=== PATIENT | female | born 1975 | race Two or more races ===

== ENCOUNTER 2018-11-09 05:36 | Day surgery (SDC) | payer OTHER ==
[2018-11-09] MEDS: CEFAZOLIN 2 GM/50 ML (PMX) 50 ML IVPB (06:00)
[2018-11-09] MEDS ORDERED: DESFLURANE 15 MIN (07:00)
[2018-11-09] MEDS ORDERED: BUPIVACAINE 0.5%/EPI (SDV) 10 ML INJ (07:23)
[2018-11-09] MEDS ORDERED: HYDROmorphONE 1 MG/5 ML IV SYRINGE IV ×3 (07:30)
[2018-11-09] MEDS ORDERED: FENTAnyl 50 MCG/ML VIAL IV ×3 (07:30)
[2018-11-09] MEDS ORDERED: DIPHENHYDRAMINE 50 MG INJ IV (07:30)
[2018-11-09] MEDS ORDERED: METOCLOPRAMIDE 10 MG INJ IV (07:30)
[2018-11-09] MEDS ORDERED: MEPERIDINE 25 MG INJ IV (07:30)
[2018-11-09] MEDS ORDERED: LACTATED RINGER'S 1,000 ML IV (07:30)
[2018-11-09] MEDS ORDERED: ALBUTEROL 0.083% (NEB) 2.5 MG/3 ML AMP HHN (07:30)
[2018-11-09] MEDS ORDERED: FENTAnyl 50 MCG/ML VIAL (07:33)
[2018-11-09] MEDS ORDERED: ROPIVACAINE 0.5 % 30 ML VIAL (07:33)
[2018-11-09] MEDS: BUPIVACAINE 0.5%/EPI (SDV) 30 ML INJ (08:22)
[2018-11-09] MEDS ORDERED: PROPOFOL 20 ML (08:57)
[2018-11-09] MEDS ORDERED: ROCURONIUM 50 MG INJ (08:57)
[2018-11-09] MEDS ORDERED: SUGAMMADEX SODIUM 200 MG/2 ML VIAL IV (08:57)
[2018-11-09] MEDS ORDERED: CEFAZOLIN 1 GM INJ (08:57)
[2018-11-09] MEDS ORDERED: SUCCINYLCHOLINE CHLORIDE 100 MG/5 ML SYG IV (08:57)
[2018-11-09] MEDS ORDERED: LIDOCAINE 100 MG SYRINGE (08:57)
[2018-11-09] MEDS: ONDANSETRON 4 MG INJ IV (09:53)
== END 2018-11-09 11:30 | disposition home or self-care (01) ==
LOC: REC 05:36 → SDS 05:36
DX: N92.1 Excessive and frequent menstruation with irregular cycle (principal); R10.2 Pelvic and perineal pain; N80.9 Endometriosis, unspecified; D25.9 Leiomyoma of uterus, unspecified; D64.9 Anemia, unspecified; N73.6 Female pelvic peritoneal adhesions (postinfective)
CPT/HCPCS: 58558; 86850; 86900; 86901; 88305